=== PATIENT | female | born 1995 | race Caucasian/White ===

== ENCOUNTER → 2017-09-24 | Outpatient (CLI) | payer OTHER ==
--- NOTE | 2017-09-24 11:41 | USB ---
Reason for exam: clinical finding. Indicated problem(s): lump or thickening in the right breast. Physical Findings: Nurse Summary: right breast palpable 3 o'clock, 2 x 4cm, non-movable, light pink in color, tender, patient states has always had nipple inversion on right (nurse ts). US Breast RT Right breast ultrasound includes all four quadrants, the retroareolar region and axilla. Finding demonstrates a 1.8 x 2.9 x 0.3cm oval, hypoechoic lesion at 4-5 o'clock. Probable infection with phlegmon, no drainable abscess. These results were verbally communicated with the patient and result sheet given to the patient on 09/24/17. ASSESSMENT: Probably benign, BI-RAD 3 RECOMMENDATION: Ultrasound of the right breast in 1 year. (6 week follow up) Manage patient on a clinical basis. Called Dr. Dawson/Dr. Kearns with mammographic findings and has patient scheduled an appointment for 09/25/17 at 4:[address] Kerans. PRELIMINARY REPORT CALLED AND FAXED TO DR. KEARNS ON 09/24/17.
== END | disposition home or self-care (01) ==
LOC: RADUSWWP 09:11
PROVIDERS: ATTEND Obstetrics & Gynecology
DX: N63.10 Unspecified lump in the right breast, unspecified quadrant (principal); N63.20 Unspecified lump in the left breast, unspecified quadrant

== ENCOUNTER 2017-09-27 14:25 | Day surgery (SDC) | payer OTHER ==
[2017-09-26 10:30] VITALS: BMI 21.9
--- NOTE | 2017-09-27 14:20 | P.GSHP ---
History of Present Illness H&P Date: 09/27/17 CHIEF COMPLAINT: Painful right breast lesion at 3:00 HISTORY OF PRESENT ILLNESS: The patient is a 22 year-old female with history of recurrent abscess of the right breast at 3:00. She presents today for surgical excision. PAST MEDICAL HISTORY: Please see list. PAST SURGICAL HISTORY: Please see list. MEDICATIONS: Please see list. ALLERGIES: Please see list. SOCIAL HISTORY: No illicit drug use FAMILY HISTORY: No reports of Crohn disease or ulcerative colitis. REVIEW OF ORGAN SYSTEMS: CONSTITUTIONAL: No reports of fevers or chills. GI: Denies any blood in stools or constipation. PHYSICAL EXAM: VITAL SIGNS: Stable Musculoskeletal: Approximately 3 cm lipomas, superficial, along the right upper proximal thigh. SKIN: Lesion identified along bilateral thighs. GENERAL: Well developed and in no acute distress. Pleasant. HEENT: No sclera icterus. Extraocular movements grossly intact. Moist buccal mucosa. Head is atraumatic, normocephalic. Hears conversational speech. No nasal drainage. NECK: Supple without lymphadenopathy. No JV distention. CHEST: Non-labored respirations and equal bilateral excursions. CARDIOVASCULAR: Regular rate and rhythm. Palpable 2+ radial pulses. ABDOMEN: Soft. Non-tender. Nondistended. NEUROLOGIC: No focal or lateralizing signs. PSYCH: Appropriate affect. Alert and oriented to person, place and time. BREAST: 3-cm nodule at nipple at 3:00 clock, non-draining. STUDIES: Ultrasound: Reviewed and demonstrated BIRADS-3 lesion at 3:00. ASSESSMENT: 1. Right breast mass at 3:00 PLAN: 1. Will proceed of excision of right breast mass 2. DVT prophylaxis. 3. Antibiotic prophylaxis. Past Medical History Past Medical History: No Reported History Additional Past Medical History / Comment(s): Mass right breast. History of Any Multi-Drug Resistant Organisms: None Reported Past Surgical History: Adenoidectomy Additional Past Surgical History / Comment(s): colposcopy, cryotherapy, tubes in ears (child) Past Anesthesia/Blood Transfusion Reactions: Unable to Obtain, Motion Sickness Additional Past Anesthesia/Blood Transfusion Reaction / Comment(s): states no anesthesia hx- does not remember childhood surgery. Past Psychological History: No Psychological Hx Reported Smoking Status: Current every day smoker Past Alcohol Use History: Rare Additional Past Alcohol Use History / Comment(s): SMOKES 5-6 CIGARETTES / DAY. SMOKING FOR 4 YEARS. Past Drug Use History: None Reported - Past Family History Mother Family Medical History: No Reported History Medications and Allergies Home Medications Medication Instructions Recorded Confirmed Type Cephalexin [Keflex] 500 mg PO Q12HR 09/26/17 09/26/17 History Naproxen Sodium [Aleve] 220 mg PO ONCE PRN 09/26/17 09/26/17 History Allergies Allergy/AdvReac Type Severity Reaction Status Date / Time No Known Allergies Allergy Verified 09/26/17 10:18
[~2017-09-27 14:25] MED LIST: DEXAMETHASONE SOD PHOSPHATE 10 MG/ML 1 ML VIAL IV ONE; LACTATED RINGERS 1,000 ML IV SCH; LIDOCAINE 1% 20 ML VIAL (10MG/ML) FOR IV START INTRADERMA PRN; MORPHINE SULFATE 4 MG/ML SYRINGE IV PRN; ONDANSETRON 4 MG/2 ML VIAL IVP ONE; Pre Op ABX Message 1 EACH MISC MISCELLANE ONE; SCOPOLAMINE 1.5MG/72HR PATCH TRANSDERM ONE; ceFAZolin IN SWFI 2 GM/20 ML SYRINGE IVP STA
[2017-09-27 14:56] VITALS: TEMP 98.1
[2017-09-27] MEDS ORDERED: LIDOCAINE 1% 20 ML VIAL (10MG/ML) FOR IV START INTRADERMA ONE (15:07)
[2017-09-27 15:18] LABS: HCT 38.1 % (34.0-46.0); MCH 27.7 pg (25.0-35.0); MCHC 34.1 g/dL (31.0-37.0); MCV 81.3 fL (80.0-100.0); Mean Platelet Volume 7.2; Platelet Count 246 k/uL (150-450); RBC 4.68 m/uL (3.80-5.40); RDW 13.2 % (11.5-15.5); WBC 6.4 k/uL (3.8-10.6)
[2017-09-27] MEDS ORDERED: LIDOCAINE 1%-EPI 1:100,000 20 ML VIAL SQ ONE ×2 (15:50)
[2017-09-27] MEDS ORDERED: PROPOFOL 10 MG/ML 20 ML VIAL IV ONE (15:52)
[2017-09-27] MEDS ORDERED: LIDOCAINE 1% INJ 10MG/ML (20 ML MDV) ONE (15:52)
[2017-09-27] MEDS ORDERED: KETOROLAC 30 MG/ML 1 ML VIAL ONE (15:52)
[2017-09-27] MEDS ORDERED: fentaNYL (PF) 50 MCG/ML 2 ML AMP ONE (15:52)
[2017-09-27] MEDS ORDERED: MIDAZOLAM 2 MG/2 ML VIAL ONE (15:52)
[2017-09-27] MEDS ORDERED: MEPERIDINE 50 MG/ML SYRINGE IVP ONE (16:58)
--- NOTE | 2017-09-27 16:59 | P.OP ---
Date of Procedure: 09/27/17 Description of Procedure: SURGEON: KAROLINA KEARNS MD FOSTER PARENT: None. PREOPERATIVE DIAGNOSES: 1. Recurrent right infected breast mass at inner upper quadrant, 3:00 2. Pre-existing nipple inversion, right breast 3. Tobacco use POSTOPERATIVE DIAGNOSES: 1. Recurrent right infected breast mass at inner upper quadrant, 3:00 2. Pre-existing nipple inversion, right breast 3. Tobacco use PROCEDURES PERFORMED: 1. Excision of right upper inner quadrant breast mass, 4 x 2 cm. ANESTHESIA: IV sedation with local with epinephrine. ESTIMATED BLOOD LOSS: 5 mL. SPECIMENS REMOVED: Right upper inner quadrant breast mass (blue posterior, short superior, long lateral) COMPLICATIONS: None. INDICATIONS: The patient is a 22-year-old female who presents with recurrent infected mass of the right upper inner quadrant of the breast. Despite prior incisions, the cyst/mass has recurred. Now she presents for surgical intervention. Benefits and risks of surgical intervention were described including bleeding, infection. Informed consent was obtained. DESCRIPTION OR PROCEDURE: Patient was brought into the operating room, laid in supine position. After adequate IV sedation, the chest and neck were prepped and draped in a standard sterile fashion with ChloraPrep. Timeout protocol was confirmed with the surgical team regarding the patient's name, procedure to be performed including preoperative medications. DVT prophylaxis was confirmed. A field block was placed of the right chest wall at the area of the mass. Circumareolar incision from 1:00 to 7:00 was made along the areolar. An incision using #15 blade was made along the marking into the dermis and subcutaneous tissue. Immediately clear yellow fluid was expressed consistent with a cyst. The mass was excised en total extending along the retroareolar with Electro-Bovie cautery. Hemostasis was checked. The skin was closed using 3-0 Vicryl was placed in interrupted fashion followed by 4-0 Monocryl in a running subcuticular fashion was placed along the dermis. The skin was cleansed and Dermabond with flesh-colored Steri-Strips. At the end of the procedure, needle, sponge, and instrument count was verified correct by registered nurse surgical services. The patient was awoken and taken to the second stage postanesthesia care unit. The patient tolerated the procedure well. FINDINGS: 1. Cyst of the right upper inner quadrant of the breast with inflammation extending retroareolar. Plan - Discharge Summary Discharge Rx Participant: Yes New Discharge Prescriptions: New HYDROcodone/APAP 5-325MG [Weott 5-325] 1 tab PO Q6HR PRN #10 tab PRN Reason: Pain No Action Naproxen Sodium [Aleve] 220 mg PO ONCE PRN PRN Reason: Pain Cephalexin [Keflex] 500 mg PO Q12HR Discharge Medication List Cephalexin [Keflex] 500 mg PO Q12HR 09/26/17 [History] Naproxen Sodium [Aleve] 220 mg PO ONCE PRN 09/26/17 [History] HYDROcodone/APAP 5-325MG [Weott 5-325] 1 tab PO Q6HR PRN #10 tab 09/27/17 [Rx] Follow up Appointment(s)/Referral(s): Karolina Kearns MD [STAFF PHYSICIAN] - 10/16/17 Patient Instructions/Handouts: Surgical Breast Biopsy (DC) Activity/Diet/Wound Care/Special Instructions: Do not remove dressing until seen by surgeon. May shower. No bath tub soaks. Discharge Disposition: HOME SELF-CARE
[2017-09-27] MEDS ORDERED: LACTATED RINGERS 1,000 ML IV ONE (17:00)
[2017-09-27] MEDS ORDERED: diphenhydrAMINE 50 MG/ML 1 ML VIAL IVP ONE (17:00)
[2017-09-27 17:47] VITALS: RESP 16
[2017-09-27 18:21] VITALS: BP 122/77; PULSE 68
== END 2017-09-27 18:35 | disposition home or self-care (01) ==
LOC: OR 14:25
PROVIDERS: ATTEND Surgery Plastic and Reconstructive Surgery
DX: N60.01 Solitary cyst of right breast (principal); N60.11 Diffuse cystic mastopathy of right breast; N64.59 Other signs and symptoms in breast; F17.210 Nicotine dependence, cigarettes, uncomplicated; Z79.2 Long term (current) use of antibiotics
CPT/HCPCS: 81025; 88305; 85027; 84703; 19120; J2250; J1200; J1100; J2175; J2405; J2001; J3010; J1885; J2704; J0690; 88307

== ENCOUNTER 2020-07-31 16:28 | Outpatient (CLI) | payer OTHER ==
[2020-07-31 18:34] VITALS: BP 125/79; PULSE 92; RESP 16; TEMP 98
[2020-07-31] MEDS ORDERED: LACTATED RINGERS 1,000 ML IV ONE (19:00)
[2020-07-31] MEDS ORDERED: MAGNESIUM SULFATE-WATER PMX 4 GM in WATER FOR INJECTION 1 100ML.BAG IVPB ONE (19:30)
--- NOTE | 2020-07-31 19:31 | US ---
EXAMINATION TYPE: US OB >= 14 wk fetus DATE OF EXAM: 07/31/2020 COMPARISON: None CLINICAL HISTORY: bleeding with no care LMP Feb 23, 2020 TECHNIQUE: A sonogram of the pelvis was performed utilizing transabdominal approach, assessing chamberlain- scale appearance and color Doppler flow. GESTATIONAL AGE / DATING Physician Established: Not yet established Dates by LMP: (22 weeks/5 days) EDC: 11-29-20 Dates by First Scan: No previous this is first scan Dates by Current Scan:(23 weeks/1 days) EDC: 11-26-20 SURVEY IUP: Single PLACENTA: Posterior PREVIA: No Previa RANDALL: 10.8 cm CERVICAL LENGTH (transabdominal: norm > 3.0cm): 2.0 cm CERVICAL LENGTH (transvaginal: norm> 2.5cm): 3.0 cm (Supplemental transvaginal imaging performed to verify cervical length.) BIOMETRY PRESENTATION: Vertex BPD: 5.8 cm 23 weeks / 6 days HC: 20.6 cm 22 weeks / 5 days AC: 19.5 cm 24 weeks / 1 days FL: 4.2 cm 23 weeks / 4 days ESTIMATED WEIGHT IN GRAMS: 631 grams ESTIMATED WEIGHT IN LBS/OZ: 1 lbs. 3 oz. WEIGHT PERCENTAGE BASED ON ESTABLISHED DATES: 90% HC/AC: 1.1 FL/AC: 21.4 HEART RATE: 143 bpm RHYTHM: Normal IMPRESSION: Single live intrauterine with estimated gestational age of 23 weeks 1 day. No significant abnormality seen.
--- NOTE | 2020-07-31 19:31 | P.HPOB ---
History of Present Illness H&P Date: 07/31/20 Chief Complaint: 22-6/7 weeks, contractions, shortened cervix The patient is a 24-year-old 2 para 1001 admitted at 22-6/7 weeks by last menstrual period and confirmed by ultrasound performed on this unit tonight showing size at 23 and one sevenths weeks. She presented to the hospital complaining of a gush of bleeding this afternoon. Upon presentation to labor and delivery, there is no evidence of ongoing bleeding. She has not had any previous care and therefore was initially evaluated with ultrasound which demonstrated no evidence of placenta previa and no evidence of retroplacental clot. Follow-up transvaginal ultrasound reported that her cervical length was 3.0 cm. However, the nursing staff following clearance of placenta previa checked her cervix and reported it as closed but 80% effaced and -1 station. She continues to have contractions which she feels but feels is consistent with movement at this point though she is somewhat uncomfortable. Laboratory workup is still pending at this time. Given her lack of care and likely need for urgent maternal- medicine interventions, I have discussed the case with a tertiary care institution who has accepted transfer of the patient for further workup and treatment as indicated. The patient denies any recent intercourse or trauma or any other causes for contractions and/or bleeding. She did have some bleeding at approximately 11 weeks of which resolved until this time. Obstetrical history: 2 para 1001 with 1 previous term delivery for arrest of dilation and descent. Current statistics are listed in history present illness. There has been no labs drawn at this point though they are pending. She has had no care to this point. Gynecologic history: Unremarkable with no history of any infections to include STDs. Review of Systems Review of systems is confined to history of present illness. Past Medical History Past Medical History: No Reported History Additional Past Medical History / Comment(s): Mass right breast. History of Any Multi-Drug Resistant Organisms: None Reported Past Surgical History: Adenoidectomy Additional Past Surgical History / Comment(s): colposcopy, cryotherapy, tubes in ears (child) Past Anesthesia/Blood Transfusion Reactions: Unable to Obtain, Motion Sickness Additional Past Anesthesia/Blood Transfusion Reaction / Comment(s): states no anesthesia hx- does not remember childhood surgery. Smoking Status: Current every day smoker - Past Family History Mother Family Medical History: No Reported History Medications and Allergies Home Medications Medication Instructions Recorded Confirmed Type Pnv No.95/Ferrous Fum/Folic AC 1 each PO 07/31/20 History [ Multivitamin Tablet] Allergies Allergy/AdvReac Type Severity Reaction Status Date / Time No Known Allergies Allergy Verified 07/31/20 16:48 Exam Vital Signs Temp Pulse Resp BP Pulse Ox 07/31/20 18:22 98 F 92 16 125/79 100 Intake and Output 07/31/20 07/31/20 07/31/20 06:59 14:59 22:59 Other: Weight 86.183 kg In general, this is a well-developed, well-nourished white female in no acute di stress though she is appropriately worried and concerned. Her heart has a regular rhythm and rate without murmur. Her lungs are clear to auscultation bilaterally in all gong. Her abdomen is gravid, appropriate fundal height for gestational age, soft, nontender, and without any palpable masses aside from the uterine fundus. Her extremities are without any cyanosis, clubbing, or edema and are nontender to palpation. Digital cervical examination performed by the nursing staff reports her cervix to be closed, approximately 80% effaced, the vertex in presentation at -1 station. Assessment and Plan (1) 22 weeks gestation of Current Visit: Yes Status: Acute Code(s): Z3A.22 - 22 WEEKS GESTATION OF SNOMED Code(s): 99936640 (2) Vaginal bleeding Current Visit: Yes Status: Acute Code(s): N93.9 - ABNORMAL UTERINE AND VAGINAL BLEEDING, UNSPECIFIED SNOMED Code(s): 872612631 (3) contractions Current Visit: Yes Status: Acute Code(s): O47.9 - FALSE LABOR, UNSPECIFIED SNOMED Code(s): 560151929 (4) Short cervix Current Visit: Yes Status: Acute Code(s): N88.3 - INCOMPETENCE OF CERVIX UTERI SNOMED Code(s): 924060489 Plan: As the patient has had no care and likely needs relatively urgent maternal- medicine evaluation, the most logical approach is to transfer the patient to tertiary care institution where this process can begin. I have discussed the case with Dr. Day at [facility] in [place] who has [facility] to accept the transfer. We have agreed to begin magnesium sulfate at a rate of 4 g bolus to be followed by 2 g per hour. Antibiotics and steroids are not indicated at this time. Laboratory workup is pending as noted above. I discussed the issues with the patient who has understood and agreed to the transfer. Last catheter will be placed for transport secondary to magnesium sulfate administration. An IV is in place currently running at 125 mL per hour.
[2020-07-31 19:41] LABS: Basophils % (A) 0 %; Eosinophils # (A) 0.2 k/uL (0-0.7); Eosinophils % (A) 2 %; HCT 34.9 % (34.0-46.0); HGB 11.6 gm/dL (11.4-16.0); Lymphocytes # (A) 1.7 k/uL (1.0-4.8); Lymphocytes % (A) 15 %; MCHC 33.2 g/dL (31.0-37.0); MCV 87.5 fL (80.0-100.0); Mean Platelet Volume 8.2; Monocytes # (A) 0.5 k/uL (0-1.0); Monocytes % (A) 4 %; Neutrophils % (A) 79 %; Platelet Count 234 k/uL (150-450); RBC 3.99 m/uL (3.80-5.40); RDW 13.2 % (11.5-15.5); WBC 11.5 k/uL (3.8-10.6)
[2020-07-31] MEDS ORDERED: MAGNESIUM SULFATE-WATER PMX 20 GM in WATER FOR INJECTION 1 500ML.BAG IV SCH (19:50)
[2020-07-31 20:09] LABS: Appearance,Urine Clear (Clear); Bilirubin,Urine Negative (Negative); Blood,Urine Small (Negative); Color,Urine Light Yellow; Glucose,Urine (UA) Negative (Negative); Ketones,Urine Negative (Negative); Leukocyte Esterase,Urine Negative (Negative); Mucus,Urine Rare /hpf; Nitrite,Urine Negative (Negative); Protein,Urine Negative (Negative); RBC,Urine 1 /hpf (0-5); Specific Gravity,Urine 1.007 (1.001-1.035); Squamous Epithelial Cell,Urine 4 /hpf (0-4); Urobilinogen,Urine <2.0 mg/dL (<2.0); WBC,Urine 1 /hpf (0-5)
--- NOTE | 2020-07-31 22:38 | US ---
EXAMINATION TYPE: US OB TV Cervical Measurement DATE OF EXAM: 07/31/2020 COMPARISON: NONE REASON FOR EXAM: Per Ordering Physician?this transvaginal scan is to assess the CERVICAL LENGTH for i ncompetence or funneling. GESTATIONAL AGE / DATING Physician Established: ( weeks/ days) EDC: Dates by Current Scan: MATERNAL/ SURVEY CERVICAL LENGTH (transvaginal: norm> 2.5cm): 3.0 cm cm IMPRESSION: Cervical length is 3 cm on the transvaginal images. This is within normal limits.
[2020-07-31 23:57] LABS: Hepatitis B Surface Antigen Non-Reactive (Non-Reactive)
[2020-08-02 14:25] LABS: C. trachomatis,PCR Negative (Neg,Equiv); Chlamydia trachomatis Source Urine
== END 2020-07-31 20:10 | disposition short-term general hospital (02) ==
LOC: FBPOP 16:28
PROVIDERS: ATTEND Obstetrics & Gynecology
DX: O20.9 Hemorrhage in early pregnancy, unspecified (principal); O47.02 False labor before 37 completed weeks of gestation, second trimester; F17.200 Nicotine dependence, unspecified, uncomplicated; O99.332 Smoking (tobacco) complicating pregnancy, second trimester; Z3A.23 23 weeks gestation of pregnancy; N88.3 Incompetence of cervix uteri
CPT/HCPCS: 99215; 96361; 96365; 86900; 86901; 82731; 86762; 82947; 85025; 86850; 87340; 81001; 87491; 76805; 76817; J3475 ×2; 96366